=== PATIENT | male | born 1980 ===

== ENCOUNTER 2017-04-03 10:19 | Observation (INO) | payer OTHER ==
[2017-04-03 10:34] VITALS: BP 158/112; PULSE 79; RESP 16; TEMP 98.9; O2SAT 96; BMI 27.4
--- NOTE | 2017-04-03 10:55 | ED PDOC ---
Arrival/HPI - General Chief Complaint: Alcohol Ingestion Time Seen by Provider: 04/03/17 10:46 - History of Present Illness Narrative History of Present Illness (Text): 04/03/17 10:53 37 yo male, no prior hx, presents with etoh abuse. as per pt, has been "drinkning for 15 days", last drink just prior to arrival. pt rports drinkning beer. pt denies any trauma, roque, abdominal pain, ches tpain or other compaints. no si/hi. no tremors Past Medical History - Provider Review Nursing Documentation Reviewed: Yes - Psychiatric Hx Substance Use: No Family/Social History - Physician Review Nursing Documentation Reviewed: Yes Family/Social History: Unknown Family HX Smoking Status: Current Some Days Smoker Hx Alcohol Use: Yes Hx Substance Use: No Allergies/Home Meds Allergies/Adverse Reactions: Allergies No Known Allergies Allergy (Unverified 04/03/17 10:52) Review of Systems - Review of Systems Constitutional: Normal Eyes: Normal ENT: Normal Respiratory: Normal Cardiovascular: Normal Gastrointestinal: Normal Genitourinary Male: Normal Musculoskeletal: Normal Skin: Normal Neurological: Normal Endocrine: Normal Hemo/Lymphatic: Normal Psychiatric: Normal Physical Exam Vital Signs Temp Pulse Resp BP Pulse Ox 04/03/17 10:32 98.9 F 79 16 158/112 H 96 Temperature: Afebrile Blood Pressure: Normal Pulse: Regular Respiratory Rate: Normal Appearance: Positive for: Well-Appearing, Non-Toxic, Comfortable Pain Distress: None Mental Status: Positive for: Alert and Oriented X 3 - Systems Exam Head: Present: Atraumatic, Normocephalic Pupils: Present: PERRL Extroacular Muscles: Present: EOMI Conjunctiva: Present: Normal Mouth: Present: Moist Mucous Membranes Neck: Present: Normal Range of Motion Respiratory/Chest: Present: Clear to Auscultation, Good Air Exchange. No: Respiratory Distress, Accessory Muscle Use Cardiovascular: Present: Regular Rate and Rhythm, Normal S1, S2. No: Murmurs Abdomen: Present: Normal Bowel Sounds. No: Tenderness, Distention, Peritoneal Signs, Rebound, Guarding Back: Present: Normal Inspection Upper Extremity: Present: Normal Inspection. No: Cyanosis, Edema Lower Extremity: Present: Normal Inspection. No: Edema Neurological: Present: GCS=15, CN II-XII Intact, Speech Normal Skin: Present: Warm, Dry, Normal Color. No: Rashes Psychiatric: Present: Alert, Oriented x 3, Normal Insight, Normal Concentration Medical Decision Making ED Course and Treatment: 04/03/17 10:55 etoh abuse, pending sobriety. 04/03/17 15:12 pt reassesed. clinicaly sober, ambulatory with steady gait, stable for d/c ED OBSERVATION Date of observation admission: 04/03/17 Time of observation admission: 11:37 - Observation admission statement Patient is being placed in observation because:: pending clinical sobriety - Goals of Observation Goals of observation are:: pending sobriety. Disposition/Present on Arrival - Present on Arrival Any Indicators Present on Arrival: No History of DVT/PE: No History of Uncontrolled Diabetes: No Urinary Catheter: No History of Decub. Ulcer: No History Surgical Site Infection Following: None - Disposition Have Diagnosis and Disposition been Completed?: Yes Diagnosis: Alcohol abuse Disposition: HOME/ ROUTINE Disposition Time: 15:13 Patient Problems: Current Active Problems Problem Status Onset Alcohol abuse Acute Condition: STABLE
== END 2017-04-03 15:12 | disposition home or self-care (01) ==
LOC: ED 10:19 → EROBSV 10:53
PROVIDERS: ADMIT Student in an Organized Health Care Education/Training Program; ATTEND Student in an Organized Health Care Education/Training Program
DX: F10.10 Alcohol abuse, uncomplicated (principal)
CPT/HCPCS: 82948; 99281; G0378